=== PATIENT | female | born 1950 | race Caucasian/White ===

== ENCOUNTER → 2018-10-10 | Outpatient (CLI) | payer OTHER | LOC: RAD 12:21 | DX: M19.071 Primary osteoarthritis, right ankle and foot (principal); M25.771 Osteophyte, right ankle; Z88.8 Allergy status to other drugs, medicaments and biological substances; Z88.5 Allergy status to narcotic agent ==

== ENCOUNTER → 2019-03-27 | Outpatient (CLI) | payer OTHER | LOC: RAD 16:40 | DX: M19.071 Primary osteoarthritis, right ankle and foot (principal) ==

== ENCOUNTER → 2019-05-11 | Outpatient (CLI) | payer OTHER ==
[~2019-05-11] MED LIST: DULOXETINE HCL60 MG PO; FLEXERIL PO; GEMFIBROZIL 60600 MG PO; JARDIANCE10 MG PO; LISINOPRIL-HCT1 EAC2 PO; MELATONIN5 MG PO; MELOXICAM15 MG PO; METFORMIN HCL500 M3 PO; MONTELUKAST SODIUM PO; NORTRIPTYLINE H10 M2 PO; NOVOLOG100 UNIT/M SUBQ; OMEPRAZOLE40 MG PO; PERCOCET 5-3251 EACH PO; TRESIBA100 UNIT/1 SUBQ; ZYRTEC-D TABLE1 EAC1 PO
== END ==
LOC: RAD 15:11
DX: Z12.31 Encounter for screening mammogram for malignant neoplasm of breast (principal); M43.26 Fusion of spine, lumbar region; Z90.49 Acquired absence of other specified parts of digestive tract; Z88.8 Allergy status to other drugs, medicaments and biological substances

== ENCOUNTER → 2019-05-23 | Outpatient (CLI) | payer OTHER ==
[~2019-05-23] VITALS: Ht 162.6 cm; Wt 74.2 kg
[2019-05-23 13:01] VITALS: BP 109/70
--- NOTE | 2019-05-23 13:50 | NUR ---
Pain Clinic Assessment: 1. History of Osteoarthritis: Not Applicable History of Rheumatoid Arthritis: Not Applicable 2. Height: 5 ft. 4 in. 162.6 cm. Weight: 163.6 lb. oz. 74.208 kg. Patient's BMI: 28.1 3. Vital Signs: BP: 109/70 Pulse: 94 Resp: 14 Temp: 02 Sat: 98 ECG Mon: 4. Pain Intensity: 4 5. Fall Risk: Dizziness: Y Needs help standing or walking: N Fallen in the last 3 months: Y Fall risk comments: 6. Patient on Blood Thinner: None 7. History of Hypertension: Y 8. Opioid Therapy greater than 6 weeks: Y Opiate Contract Signed: 9. Risk Assessment Tool Provided: 10. Functional Assessment Tool: 11. Recreational Drug Use: Never Drug Type: Tobacco Use: Never Smoker Tobacco Type: Amount or Packs/day: How Many Years: Alcohol Use: Yes Frequency: Weekly Quant: 1-2
--- NOTE | 2019-05-30 12:56 | HPC ---
[facility] [address] [place] [address] PAIN MANAGEMENT CONSULTATION Name: MARC PHELAN Room #: REG BABATUNDE MBetty.#: [id number] Admission: 05/23/19 Attend Phys: Raj Brito DO Discharge: Date of : 50 Report #: [id number] THIS REPORT FOR: //name// CC: Raj Ocampo DATE OF SERVICE: 05/23/2019 REFERRING PHYSICIAN: ELZA Toledo. CHIEF COMPLAINT: Low back pain, right lower extremity pain with paresthesias, intermittent left lower extremity pain with paresthesias. HISTORY OF PRESENT ILLNESS: As you know, the patient is a 69-year-old female who reports acute onset of low back pain, bilateral lower extremity pain that began somewhere in March 2019. The patient denies any specific injury or trauma that may have led to symptom occurrence. She has trialed conservative treatment options utilizing rqgf-ook-gaoobwz medications and stretching exercises. Unfortunately, her symptoms did not improve. The patient has had fusion from L3 through S1, stabilizing the lumbar spine, but reducing any type of mobility. The patient states that she believes she may have exacerbated her symptoms while climbing up one of the hills at a football game. She states that the majority of symptoms are aching, numbness and sensation. Due to lack of improvement with conservative treatment and the fact that the patient has had significant surgical procedures done to the lumbar spine, she was referred to our clinic to discuss options for treatment. The patient indicates today pain is continuous, describes the pain as burning, shooting, aching, throbbing, sharp, tender when describing pain, current pain score 4/10, daily average of 5-7/10, worst pain has been 9/10. The patient states that pain is exacerbated with climbing stairs, standing for any length of time or walking on inclines. Pain is improved with reclining and stretching exercises. She has been referred to our service to discuss treatment options for chronic axial back pain, status post multiple fusion surgeries. PAST MEDICAL HISTORY: 1. Hypertension. 2. Anxiety. 3. Asthma. 4. Cataracts. 5. Diabetes mellitus type 2. 6. Gout. 7. Irritable bowel syndrome. 8. Osteoarthritis. 9. Chronic low back pain. [facility] [address] [place] [address] PAIN MANAGEMENT CONSULTATION Name: MARC PHELAN Room #: REG [facility].#: [id number] Admission: 05/23/19 Attend Phys: Raj Brito DO Discharge: Date of : 50 Report #: [id number] PAST SURGICAL HISTORY: 1. Appendectomy. 2. Cataract extraction. 3. Cholecystectomy. 4. Hysterectomy. 5. Fusions of L3, L4, L5 and S1. 6. Sinus surgery. 7. Right great toe surgery. 8. Tonsillectomy, adenoidectomy and bilateral myringotomy tubes. SOCIAL HISTORY: The patient denies tobacco use. Denies IV or illicit drug use. Admits to occasional alcohol beverage. She is accompanied by her present in room today. IMAGING: X-ray of the lumbar spine shows previous lumbar fusions and hardware at L5-S1, previous bony fusion at L3 through L5. No acute lumbar fracture noted. There is no MRI available. ALLERGIES: LYRICA, AUGMENTIN, ASPIRIN and CODEINE. CURRENT MEDICATIONS: Jardiance 10 mg once a day, omeprazole 40 mg once a day, insulin NovoLog 100 units subcutaneous before meals, nortriptyline 10 mg p.o. at bedtime, Mobic sodium 10 mg per day, metformin 500 mg twice a day, meloxicam 15 mg once a day, melatonin 5 mg 2 tabs p.o. at bedtime, lisinopril/hydrochlorothiazide 20/25 once a day, Tresiba 36 units daily, gemfibrozil 600 mg twice a day, duloxetine 60 mg once a day, pseudoephedrine/cetirizine 1 tab per day. PHYSICAL EXAMINATION: VITAL SIGNS: Blood pressure 109/70, pulse is 94, respiratory rate 14 and unlabored. The patient is 98% on room air. Height 5 feet 4 inches tall, weight 163.6 pounds, BMI calculated 28.1. GENERAL: Well-developed, well-nourished, well-hydrated 69-year-old female appearing her stated age. She is in no acute distress, awake, alert and oriented x 3. Current pain score is rated at 4/10. HEENT: Normocephalic, atraumatic. Pupils equal, round, reactive to light. Extraocular muscles are intact. Sclerae nonicteric without injection. NEUROLOGIC: Cranial nerves 2-12 grossly intact. Speech is fluent. The patient deemed a good historian. LUNGS: Clear, no wheeze, rhonchi or rales. CARDIOVASCULAR: Regular. No appreciable gallop. No murmur, no rub. ABDOMEN: Soft, nontender, nondistended, normoactive bowel sounds. EXTREMITIES: Show no clubbing, no cyanosis, no edema. MUSCULOSKELETAL: There is reduced range of motion of the lumbar spine due to previous fusions. Well-healed surgical scars over the lumbar spine. The patient has a significant reduction in extension, rotation, lateral flexion of [facility] [address] [place] [address] PAIN MANAGEMENT CONSULTATION Name: MARC PHELAN Room #: REG CLShahrzad Barreto#: [id number] Admission: 05/23/19 Attend Phys: Raj Brito DO Discharge: Date of : 50 Report #: [id number] the lumbar spine due to previous fusions. Seated straight leg raising negative. Supine straight leg raising negative. Siri's test is negative. Modified Gaenslen's positive as low back pain. Ankle clonus negative. Babinski is negative. Muscle bulk and tone in the lower extremities are equal and symmetrical. She is intact to light touch from L1 through S2 dermatomes. Gait appears steady, but somewhat stiff. ASSESSMENT: 1. Chronic back pain. 2. Chronic lumbar radiculopathy. 3. Failed lumbar spine surgery. 4. Chronic intractable pain. PLAN: 1. Based on today's physical exam and the history the patient provides the description the patient uses in regards to pain as well as the distribution of symptoms, likely source of the patient's pain is a lumbar radiculopathy. We have discussed with the patient the fact that she has undergone L3, L4, L5 and S1 fusions makes it impossible to proceed with interventional treatment such as epidural injections. We are severely limited due to the changes from surgical procedures. We discussed the limited treatment options we have available for the patient today, the following was discussed with the patient. 2. We discussed physical therapy, stretching exercises and any core strengthening. The patient can do to stabilize the low back and potentially improve overall pain. We discussed medication management utilizing muscle spasming medication for the spasming she experiences on a daily basis, utilizing low dose opioids to control pain and the possibility of adding a nonsteroidal anti-inflammatory if she can tolerate such. We also discussed neuropathic pain medications such as nortriptyline, amitriptyline, Cymbalta or possibly gabapentin, understanding the patient has had potential side effects to Lyrica. We also discussed spinal cord stimulator as a possible treatment option, which would be beneficial for the lower extremities, but we will provide no improvement in the axial back symptoms the patient is experiencing at present. After reviewing the risks and benefits of all proposed treatment options, the patient chose to make adjustments in medication management. 3. The patient will be trialed on a dose of cyclobenzaprine. I will give the patient 10 mg dose 1 tab p.o. t.i.d. I have given the patient #30 tablets to trial, these are to be only used when she is experiencing muscle spasming, which would be a significant component of the patient's pain presentation given the fusion of the L3 through S1 areas. This would not be surprised to have muscle spasming and I am hopeful this medication could be beneficial. The patient was given this prescription with no refills. 4. The patient and I had a long discussion about the use of medications indicating that with the opioid epidemic that these medications will not be available for a long time and ultimately she will have to wean off the therapy [address] [address] PAIN MANAGEMENT CONSULTATION Name: MARC PHELAN Room #: REG BABATUNDE Barreto#: [id number] Admission: 05/23/19 Attend Phys: Raj Brito DO Discharge: Date of : 50 Report #: [id number] once they are unavailable which could be in the very near future. We did agree to initiate the medication today with the understanding that ultimately these medications will likely be discontinued for chronic pain. 5. The patient was provided prescription of oxycodone 5 mg dose 1 tab p.o. b.i.d. I have given the patient #60 tablets. I have advised the patient not to take the medication on a prophylactic basis. She is to take the medication as directed. She is to watch for side effects of sleepiness, disorientation, confusion, mental slowing and constipation. 6. The patient will be returned to our clinic in approximately 1 month. If she is stable on the dosing of medication, we will return her care to her PCP to continue the therapy. She does not need to continue with the pain management clinic for low dose medications to be provided. We will review her case in followup visit. She is doing well. We will return her care to the referring physician. 7. We did discuss to some degree a spinal cord stimulator as a possible treatment option. As indicated above, the spinal cord stimulator can provide improvement in the lower extremity symptoms, but we will provide little or no benefit of the axial back and thus I do not feel it is a good alternative treatment, though it is available, she could consider this if more conservative treatment options are less effective. 8. We wish to thank the referring nurse practitioner, Trang Ocampo for the opportunity to see the patient in consultation. We will keep you apprised of her response to treatment and any other adjustments we make in medication management before returning her care to your capable services for continuation of treatment. Again, we wish to thank you for the opportunity to see the patient in consultation. <ELECTRONICALLY SIGNED> By: Raj Brito DO 05/30/19 [id number] Raj Brito DO /nt
== END ==
LOC: PAIN 07:00
DX: M54.16 Radiculopathy, lumbar region (principal); G89.4 Chronic pain syndrome; I10 Essential (primary) hypertension; M19.90 Unspecified osteoarthritis, unspecified site; E11.9 Type 2 diabetes mellitus without complications; F41.9 Anxiety disorder, unspecified; Z79.899 Other long term (current) drug therapy; Z88.8 Allergy status to other drugs, medicaments and biological substances

== ENCOUNTER → 2019-06-28 | Outpatient (CLI) | payer OTHER ==
[~2019-06-28] VITALS: Ht 162.6 cm; Wt 74.2 kg
[2019-06-28 14:36] VITALS: BP 103/67
--- NOTE | 2019-06-28 14:50 | NUR ---
Pain Clinic Assessment: 1. History of Osteoarthritis: HANDS BACK History of Rheumatoid Arthritis: Not Applicable 2. Height: 5 ft. 4 in. 162.6 cm. Weight: 163.6 lb. oz. 74.208 kg. Patient's BMI: 28.1 3. Vital Signs: BP: 103/67 Pulse: 96 Resp: 14 Temp: 02 Sat: 96 ECG Mon: 4. Pain Intensity: 2 5. Fall Risk: Dizziness: Y Needs help standing or walking: N Fallen in the last 3 months: N Fall risk comments: 6. Patient on Blood Thinner: None 7. History of Hypertension: Y 8. Opioid Therapy greater than 6 weeks: Y Opiate Contract Signed: 9. Risk Assessment Tool Provided: 10. Functional Assessment Tool: 11. Recreational Drug Use: Never Drug Type: Tobacco Use: Never Smoker Tobacco Type: Amount or Packs/day: How Many Years: Alcohol Use: Yes Frequency: Weekly Quant: 1-2
--- NOTE | 2019-07-05 12:57 | HPC ---
[facility] [address] [place] [address] PAIN MANAGEMENT CONSULTATION Name: MARC PHELAN Room #: REG BABATUNDE Christ.#: [id number] Admission: 06/28/19 Attend Phys: Raj Brito DO Discharge: Date of : 50 Report #: [id number] THIS REPORT FOR: //name// CC: Raj BERTRAND DATE OF SERVICE: 06/28/2019 REFERRING PHYSICIAN: ELZA Toledo CHIEF COMPLAINT: Low back pain, right lower extremity pain with paresthesias, intermittent left lower extremity pain. HISTORY OF PRESENT ILLNESS: As you know, the patient is a 69-year-old female reporting acute onset of low back pain, bilateral lower extremity pain that began somewhere in 03/2019. She denies any specific injury or trauma that may have led to symptom occurrence. She was seen in consultation per the request of Trang Ocampo on 05/23/2019, diagnosed with chronic lumbar radiculopathy, failed lumbar spine surgery with chronic intractable pain. At that visit, we discussed treatment options provided the patient with adjustment in her medications. We provided her with a dose of oxycodone for pain control and we discussed a spinal cord stimulator option with the patient. She returns today in followup visit requesting refill of medications. She feels medications are working beneficially for pain control. She is denying side effects of sleepiness, disorientation, confusion, mental slowing or constipation with their use. The patient indicates pain level today of about 2/10, which is a significant improvement from her initial evaluation. She returns today for refill of medications, requesting no adjustments. ALLERGIES: CODEINE, ASPIRIN, CLAVULANIC ACID, AMOXICILLIN and PREGABALIN. CURRENT MEDICATIONS: Percocet 5/325 one tab t.i.d. p.r.n. pain, Jardiance 10 mg once a day, omeprazole 40 mg per day, NovoLog 100 units subcutaneous before meals, nortriptyline 20 mg p.o. at bedtime, montelukast sodium 10 mg per day, metformin 500 mg b.i.d., meloxicam 15 mg per day, melatonin 10 mg per day, lisinopril/hydrochlorothiazide 20/25 once a day, Tresiba 36 units in the morning, gemfibrozil 600 mg b.i.d., duloxetine 60 mg once a day, and cetirizine 10 mg per day. IMAGING: No new imaging available. SOCIAL HISTORY: The patient denies tobacco, denies IV or illicit drug use. Admits occasional alcohol beverage. She is accompanied by her present [place] [address] PAIN MANAGEMENT CONSULTATION Name: MARC PHELAN Room #: REG BABATUNDE Barreto#: [id number] Admission: 06/28/19 Attend Phys: Raj Brito DO Discharge: Date of : 50 Report #: [id number] PHYSICAL EXAMINATION: VITAL SIGNS: Blood pressure 103/67, pulse 96, respiratory rate 14 and unlabored. The patient is 96% on room air. Height 5 feet 4 inches tall, weight 163.6 pounds, BMI calculated 28.1. GENERAL: Well-developed, well-nourished, well-hydrated 69-year-old female appearing stated age. Pain is rated today at 2/10. HEENT: Normocephalic, atraumatic. Pupils equal, round, reactive to light. EXTREMITIES: Show no clubbing, no cyanosis, and no edema. MUSCULOSKELETAL: Lower extremity strength appears symmetrical 5/5, intact to light touch from L1 through S2 dermatomes. Seated straight leg raising negative. Supine straight leg raising is negative. Siri's test negative. Modified Gaenslen's positive for axial low back pain. Well-healed surgical scars. ASSESSMENT: 1. Chronic lumbar radiculopathy. 2. Failed lumbar spine surgery. 3. Chronic low back pain. 4. Chronic intractable pain. PLAN: 1. The patient returns today in followup visit indicating that medication management is working well for pain control. We have stabilized the patient on medication and have advised the patient that further adjustments in our opinion at this time, will not be necessary. We did advise the patient that continuation of oxycodone therapy will not be something that can be provided long-term as there is no noted literature that supports long-term opioid management in patients with chronic failed lumbar spine surgery. We have agreed to provide pain medications before the period of time of no greater than 6 months. At that time, the patient will need to either just off these medications or to trial other treatment options that are more appropriate for long-term therapy. The patient is amenable. 2. We reviewed the fact that opiate medications are being used to provide analgesia adequate to support activities of daily living, not attempting to achieve a specific pain score on the 0-10 Visual Analog Scale. The current opiate medications are providing sufficient analgesia to allow the patient to participate in activities of daily living. The patient is not exhibiting any aberrant behavior suggestive of drug diversion. The patient is not having any adverse reactions to medications. The patient is not suffering from daytime somnolence or mental acuity changes. The patient is managing opiate-induced constipation with appropriate ohtb-qcc-lmunicw agents and dietary considerations. The patient was counseled on concern for caution with operating a motor vehicle while using opiate medications. A physical exam was performed and the patient's functional status was evaluated. All patients with back pain were advised against the bed rest greater than 4 [facility] [address] [place] [address] PAIN MANAGEMENT CONSULTATION Name: MARC PHELAN Room #: REG CLShahrzad M.Dhiraj.#: [id number] Admission: 06/28/19 Attend Phys: Raj Brito DO Discharge: Date of : 50 Report #: [id number] days and were advised to return to normal activities. Pain score assessment was noted and the treatment plan was reviewed with the patient. All current medications, both prescribed and OTC were reviewed and reconciled on the electronic medical record. Tobacco screening was accomplished and smoking cessation was advised when indicated. BMI was noted and diet/exercise modification was recommended for all patients following outside normal parameters. I reviewed with the patient today their responsibilities to safeguard prescription medications, reviewed their responsibility to utilize medications only as prescribed by the physician. They are to seek and receive pain medications only from 1 physician group ( [facility]). They are to use 1 pharmacy and keep the clinic informed if they change pharmacies. Their responsibilities include making followup visits in a timely fashion and to avoid abrupt discontinuation of medication usage. Their responsibilities further include bringing their medications (bottles from the pharmacy with residual pills) to the visit for possible confirmation of pill counts and the patient understands it is their responsibility to submit to random drug screens to ensure both that the medications prescribed are present, and that no other controlled substances are present. All prescriptions provided today were generated electronically. 3. The patient was provided prescription of oxycodone 5/325 mg dose 1 tab p.o. t.i.d. I have given the patient #90 tablets, releasing today, 4 weeks from today and 8 weeks from today, 3 months' worth of medication. The patient was advised to take the medication as directed, not to take the medication prophylactically. 4. We will see the patient back in followup visit in 3 months to discuss more long-term treatment options. <ELECTRONICALLY SIGNED> By: Raj Brito DO 07/05/19 [id number] Raj Brito DO /nt
== END ==
LOC: PAIN 06:55
DX: M54.16 Radiculopathy, lumbar region (principal); M79.604 Pain in right leg; M79.605 Pain in left leg; Z88.5 Allergy status to narcotic agent; Z88.1 Allergy status to other antibiotic agents; Z88.8 Allergy status to other drugs, medicaments and biological substances

== ENCOUNTER → 2019-10-18 | Outpatient (CLI) | payer OTHER ==
[~2019-10-18] VITALS: Ht 165.1 cm; Wt 75.3 kg
[2019-10-18 12:51] VITALS: BP 125/76
--- NOTE | 2019-10-18 13:01 | NUR ---
Pain Clinic Assessment: 1. History of Osteoarthritis: HANDS BACK History of Rheumatoid Arthritis: Not Applicable 2. Height: 5 ft. 5 in. 165.1 cm. Weight: 166.0 lb. oz. 75.297 kg. Patient's BMI: 27.6 3. Vital Signs: BP: 125/76 Pulse: 85 Resp: 16 Temp: 02 Sat: 100 ECG Mon: 4. Pain Intensity: 6 5. Fall Risk: Dizziness: N Needs help standing or walking: N Fallen in the last 3 months: Y Fall risk comments: 6. Patient on Blood Thinner: None 7. History of Hypertension: Y 8. Opioid Therapy greater than 6 weeks: Y Opiate Contract Signed: 9. Risk Assessment Tool Provided: LOW-0 10. Functional Assessment Tool: 11. Recreational Drug Use: Never Drug Type: Tobacco Use: Never Smoker Tobacco Type: Amount or Packs/day: How Many Years: Alcohol Use: Yes Frequency: Monthly Quant: 1
--- NOTE | 2019-10-19 08:19 | HPC ---
[facility] [place] [address] PAIN MANAGEMENT CONSULTATION Name: MARC PHELAN Room #: REG BABATUNDE Christ.#: [id number] Admission: 10/18/19 Attend Phys: Shama Vegas Discharge: Date of : 50 Report #: [id number] THIS REPORT FOR: cc: Trang Ocampo DNP, Mary E. DNP Hocker, Amanda CNS ~ CC: Raj Brito DO DATE OF SERVICE: 10/18/2019 CHIEF COMPLAINT: Low back pain, right lower extremity pain and paresthesias. HISTORY OF PRESENT ILLNESS: As you know, this is a 69-year-old female who continues to have ongoing low back pain and bilateral lower extremity pain. Today, the majority of pain is in the left lower extremity. She reports that she fell at [employer] about 6 weeks ago and injured her knee and back. She did not seek any medical attention at that time due to the COVID virus outbreak. At that time, she was very scared to go to a hospital to have any x-rays or see a doctor. She has been trying to deal with that at home, but continues to have throbbing pain, which is occasionally sharp in her lower back again radiating down her left leg more specifically, but occasionally has some right-sided pain. She states that her spasms have increased in her back and she is not able to sleep at night. Today, she is reporting a pain score is 6/10, pain is worse with walking stairs and sleeping at night. She has been requiring more of her breakthrough pain medicine of Percocet to get through each day. Today, she is requesting refills of her medication, a possible muscle relaxant and a possible x-ray to verify that she has not injured herself from this fall. ALLERGIES: CODEINE, ASPIRIN, AMOXICILLIN, AND LYRICA. CURRENT LIST OF MEDICATIONS: Percocet 5/325 p.r.n., Jardiance, omeprazole, NovoLog, nortriptyline, Singulair, metformin, meloxicam, melatonin, lisinopril/hydrochlorothiazide, Tresiba, gemfibrozil, Cymbalta, Zyrtec and oxycodone. PQRS: 1. She has osteoarthritic changes in her hands and back. Denies any rheumatoid arthritis. 2. Height is 5 feet 5 inches, weight is 166, BMI is 27. 3. Vital signs 125/76, pulse is 85, respirations 16, oxygen sat is 100. 4. Pain score is 6/10. 5. Denies dizziness, does not need help walking or standing, has fallen in the last 3 months. 6. The patient is not on any blood thinners, but she does take medicine for hypertension. Her opioid therapy is greater than 6 weeks; therefore, an opioid signed contract is on the chart. Risk [place] [address] PAIN MANAGEMENT CONSULTATION Name: MARC PHELAN Room #: REG BABATUNDE Barreto#: [id number] Admission: 10/18/19 Attend Phys: Shama Vegas Discharge: Date of : 50 Report #: [id number] assessment is 48/70. 7. Recreational drug use, she denies. She is not a smoker and occasionally drinks alcohol. IMAGING: I ordered an x-ray of her pelvis, which showed no fractures and lumbar spinal fusion on the L4 laminectomy. Two view lumbar spine showed an L3-S1 spinal fusion with L4 laminectomy, degenerative disk disease of the lumbar spine with no fractures present. PHYSICAL EXAMINATION: GENERAL: This is alert and orientated, well-developed, well-nourished 69-year-old female who appears her stated age, placing her current pain score is 6/10. HEENT: Normocephalic, atraumatic. Extraocular eye muscles are intact. EXTREMITIES: No clubbing, no cyanosis, no edema. MUSCULOSKELETAL: She has tenderness in her left knee. Pain radiates from her lower back down the lateral aspect of her thigh following the L4-L5 dermatomal distribution. Straight leg raising is negative. Modified Gaenslen is positive for axial low back pain. She has well-healed surgical scars. Her lower extremity strength judged to be 5/5 in all major muscle groups. She does have a slightly antalgic gait. IMPRESSION: 1. Chronic lumbar radiculopathy. 2. Failed lumbar spine syndrome. 3. Chronic low back pain. 4. Chronic intractable pain. 5. Muscle spasms. PLAN: 1. We discussed treatment options with the patient today. We will continue her oxycodone at 5/325, #90, for today for an 8-week supplies given and sent electronically. We will hopefully be able to wean this back down again after this acute injury. The patient has been taking these very sparingly and had not filled any prescriptions and have her 3 months of medicine have lasted her greater than 4 months. 2. The patient is complaining of increased muscle spasms in her lumbar spine since her recent fall. She had taken Flexeril in the past, we will send a prescription electronically for #30 with no refills to see if this will help her sleep slightly better with less spasms at night. 3. We did perform x-rays today and reports as stated above. 4. I have taken the liberty of scheduling appointment with Dr. Raj Brito for a possible lumbar epidural steroid injection for next week if her symptoms do not resolve over the weekend or at least diminished with her muscle relaxant [facility] [address] [place] [address] PAIN MANAGEMENT CONSULTATION Name: MARC PHELAN Room #: REG BABATUNDE Barreto#: [id number] Admission: 10/18/19 Attend Phys: Shama Vegas Discharge: Date of : 50 Report #: [id number] and opioid medications. 5. The patient is seen today in collaboration with Dr. Raj Brito. <ELECTRONICALLY SIGNED> By: Shama Vegas 10/19/19 0819 1519 05 Shama Vegas /nt
== END ==
LOC: PAIN 07:55 → RAD 07:55 → PAIN 09:49
DX: M51.16 Intervertebral disc disorders with radiculopathy, lumbar region (principal); M43.16 Spondylolisthesis, lumbar region; R10.2 Pelvic and perineal pain; M79.641 Pain in right hand; M62.838 Other muscle spasm; G89.29 Other chronic pain; R20.2 Paresthesia of skin; Z88.1 Allergy status to other antibiotic agents; Z88.2 Allergy status to sulfonamides; Z88.8 Allergy status to other drugs, medicaments and biological substances; Z79.899 Other long term (current) drug therapy; Z98.1 Arthrodesis status

== ENCOUNTER → 2019-10-25 | Outpatient (CLI) | payer OTHER ==
[~2019-10-25] VITALS: Ht 165.1 cm; Wt 74.4 kg
[~2019-10-25] MED LIST changes: +MEDROLDOSEPACK PO
--- NOTE | ~2019-10-25 | HPC ---
[facility] [place] [address] PAIN MANAGEMENT CONSULTATION Name: MARC PHELAN Room #: REG BABATUNDE Polo.#: [id number] Admission: 10/25/19 Attend Phys: Raj Brito DO Discharge: Date of : 50 Report #: [id number] THIS REPORT FOR: cc: Trang Ocampo DNP, Mary E. DNP Johnson, James E. DO ~ CC: Raj BERTRAND DATE OF SERVICE: 10/25/2019 REFERRING PHYSICIAN: ELZA Toledo CHIEF COMPLAINT: Low back pain, right lower extremity pain with paresthesias. HISTORY OF PRESENT ILLNESS: As you know, the patient is a very pleasant 69-year-old female who returns today in followup visit having sustained a fall at a local hardware store. She states she tripped over a platform falling forward, exacerbating her low back symptoms. She is now experiencing pain radiating down the right leg and intermittently into the left. She did not seek evaluation after this fall and has continued to suffer from ongoing pain. She saw the nurse practitioner here at our clinic, Shama Vegas who established today's appointment for possible epidural injection. The patient indicates pain has begun to improve slightly and she wishes to discuss options for treatment. She has undergone x-ray imaging of the pelvis and the lumbar spine. There are no concerning findings. She returns to discuss these x-ray imaging, but also interventional treatments if necessary. ALLERGIES: CODEINE, ASPIRIN, AMOXICILLIN and LYRICA. CURRENT MEDICATIONS: Percocet, Jardiance, omeprazole, NovoLog, nortriptyline, Singulair, metformin, meloxicam, melatonin, lisinopril, hydrochlorothiazide, Tresiba, gemfibrozil, Cymbalta, Zyrtec and oxycodone. SOCIAL HISTORY: The patient denies tobacco, alcohol, IV or illicit drug use. She is unaccompanied at today's visit. IMAGING: X-ray of the lumbar spine shows no fractures or concerning changes. There is effusion noted from L3 through S1. X-ray of the pelvis shows normal alignment of the pelvis and normal findings. No fracture. PQRS: The patient has known arthritic changes of the bilateral hands and lumbar spine. Denies rheumatoid arthritis. She is placing pain intensity today at [address] [address] PAIN MANAGEMENT CONSULTATION Name: MARC PHELAN Room #: REG [facility] Christ.#: [id number] Admission: 10/25/19 Attend Phys: Raj Brito DO Discharge: Date of : 50 Report #: [id number] 09/28. She is not typically a fall risk, but did have a fall about 6 weeks ago at her local hardware store while tripping over an object. She does not have typical fall concerns. She is not on blood thinners, but is treated for hypertension. She is on chronic opioids with low opioid addiction potential. Pain impact score is 48/70, severe interference of daily activities secondary to pain. PHYSICAL EXAMINATION: VITAL SIGNS: Blood pressure 130/73, pulse 100, respiratory rate 16 and unlabored. The patient is 98% on room air. Height 5 feet 5 inches tall, weight 164 pounds, BMI calculated 27.3. GENERAL: Well-developed, well-nourished, well-hydrated 69-year-old female appearing stated age, pain is rated today 4/10. HEENT: Normocephalic, atraumatic. Pupils equal, round and reactive. EXTREMITIES: Show no clubbing, no cyanosis, no edema. MUSCULOSKELETAL: The patient has tenderness to palpation over the paraspinal musculature of lower lumbar spine. No spinous process tenderness. Well-healed surgical scar noted. Seated straight leg raising negative. Supine straight leg raising is positive. Siri's test is negative. Modified Gaenslen's positive for axial low back pain, severe restriction of motion of the lumbar spine secondary to surgery. Muscle strength is equal and symmetrical in lower extremities, 5/5. Muscle bulk and tone equal and symmetrical. Light touch is intact from L1 through S2 dermatomes. ASSESSMENT: 1. Chronic lumbar radiculopathy. 2. Failed lumbar spine surgery. 3. Lumbar sprain secondary to fall. 4. Chronic low back pain. 5. Myofascial symptoms. PLAN: 1. The patient returns today in followup visit, showing continued back pain and lower extremity symptoms, which appears to be exacerbated lumbar radicular symptoms secondary to this fall. The patient did not seek evaluation from this fall and likely x-ray imaging shows no fractures in the lumbar spine nor any fractures in the pelvis. It does appear she may have exacerbated her chronic lumbar radiculopathy, but also a significant amount of myofascial strain is noted. We recommend conservative treatment option at this time. I do not feel that further imaging is necessary, though this may ultimately be needed if she continues to experience pain that is unresolved with more conservative treatment options. The patient is agreeable. 2. We did discuss the patient's treatment options we have available, these include physical therapy, stretching exercise, core strengthening. We also discussed medication management adding a steroid oral initially. If this is ineffective, move forward with a possible lumbar epidural injection. If [address] [address] PAIN MANAGEMENT CONSULTATION Name: MARC PHELAN Room #: REG BABATUNDE Barreto#: [id number] Admission: 10/25/19 Attend Phys: Raj Brito DO Discharge: Date of : 50 Report #: [id number] epidural injections and medication management are not effective, options would remain with spinal cord stimulator or surgical options. After reviewing the risks and benefits of all proposed treatment options, the patient chose to begin with conservative medication management. 3. The patient will be started on Medrol Dosepak. She will take the pack as directed. We are hopeful the patient will see good and prolonged benefit with its use. I have provided the patient with a prescription of Medrol Dosepak today to begin tomorrow. 4. The patient will contact our clinic next week if she is not seeing significant pain improvement with this Medrol Dosepak. There is a possibility that she has exacerbated her chronic lumbar radiculopathy with this fall. There is also a strong possibility that she may have had some changes at the L2-L3 level that are now realized after this fall as she has been fused from L3 through S1, which places her at a much greater risk of development of the spinal stenosis at the level just above the fusion. If further imaging is necessary, would recommend MRI. We will await the results and efficacy of the Medrol Dosepak before moving forward with imaging. 5. We will see the patient back in followup visit on an as needed basis. She will contact our clinic next week in regards to efficacy, further adjustments may be necessary at that time. By: [id number] Raj Brito DO /dylan
[2019-10-25 13:32] VITALS: BP 130/73
--- NOTE | 2019-10-25 13:35 | NUR ---
Pain Clinic Assessment: 1. History of Osteoarthritis: HANDS BACK History of Rheumatoid Arthritis: Not Applicable 2. Height: 5 ft. 5 in. 165.1 cm. Weight: 164.0 lb. oz. 74.390 kg. Patient's BMI: 27.3 3. Vital Signs: BP: 130/73 Pulse: 100 Resp: 16 Temp: 02 Sat: 98 ECG Mon: 4. Pain Intensity: 4 5. Fall Risk: Dizziness: N Needs help standing or walking: N Fallen in the last 3 months: Y Fall risk comments: 6. Patient on Blood Thinner: None 7. History of Hypertension: Y 8. Opioid Therapy greater than 6 weeks: Y Opiate Contract Signed: 9. Risk Assessment Tool Provided: LOW-0 10. Functional Assessment Tool: 11. Recreational Drug Use: Never Drug Type: Tobacco Use: Never Smoker Tobacco Type: Amount or Packs/day: How Many Years: Alcohol Use: Yes Frequency: Quant:
== END ==
LOC: PAIN 06:48
DX: M54.16 Radiculopathy, lumbar region (principal); M79.604 Pain in right leg; R20.2 Paresthesia of skin; M96.1 Postlaminectomy syndrome, not elsewhere classified; M79.10 Myalgia, unspecified site; Z88.1 Allergy status to other antibiotic agents; Z88.5 Allergy status to narcotic agent; Z88.8 Allergy status to other drugs, medicaments and biological substances; Z79.899 Other long term (current) drug therapy

== ENCOUNTER → 2019-11-20 | Outpatient (CLI) | payer OTHER | LOC: LAB 11-17 09:12 | PROVIDERS: ATTEND Nurse Practitioner | DX: R05 Cough (principal); R50.9 Fever, unspecified; J02.9 Acute pharyngitis, unspecified; Z20.828 Contact with and (suspected) exposure to other viral communicable diseases ==

== ENCOUNTER → 2020-01-17 | Outpatient (CLI) | payer OTHER ==
[~2020-01-17] VITALS: Ht 165.1 cm; Wt 74.0 kg
[~2020-01-17] MED LIST changes: +NEURONTIN 300M300 M2 PO; +PLAQUENIL200 MG PO
[2020-01-17 10:56] VITALS: BP 157/84
--- NOTE | 2020-01-17 11:12 | NUR ---
Pain Clinic Assessment: 1. History of Osteoarthritis: HANDS BACK History of Rheumatoid Arthritis: YES 2. Height: 5 ft. 5 in. 165.1 cm. Weight: 163.2 lb. oz. 74.027 kg. Patient's BMI: 27.2 3. Vital Signs: BP: 157/84 Pulse: 96 Resp: 18 Temp: 02 Sat: 100 ECG Mon: 4. Pain Intensity: 4-5 7 noc 5. Fall Risk: Dizziness: N Needs help standing or walking: N Fallen in the last 3 months: N Fall risk comments: 6. Patient on Blood Thinner: None 7. History of Hypertension: Y 8. Opioid Therapy greater than 6 weeks: Y Opiate Contract Signed: 01/17/20 9. Risk Assessment Tool Provided: LOW-0 10. Functional Assessment Tool: 11. Recreational Drug Use: Never Drug Type: Tobacco Use: Never Smoker Tobacco Type: Amount or Packs/day: How Many Years: Alcohol Use: No Frequency: Quant:
--- NOTE | 2020-01-18 11:21 | HPC ---
[facility] [address] [address] PAIN MANAGEMENT CONSULTATION Name: MARC PHELAN Room #: REG BABATUNDE Christ.#: [id number] Admission: 01/17/20 Attend Phys: Shama Vegas Discharge: Date of : 50 Report #: [id number] THIS REPORT FOR: cc: Trang Ocampo DNP, Mary E. DNP Hocker, Amanda CNS ~ CC: ZAIN CHANDLER DO DATE OF SERVICE: 01/17/2020 CHIEF COMPLAINT: Low back pain, right lower extremity pain and paresthesias. HISTORY OF PRESENT ILLNESS: As you know, this is a 69-year-old female who returns to the pain clinic today for a refill of her opioid medications. She does continue to complain of ongoing back pain that radiates into her legs, right leg greater than the left and increase in neuropathy in her feet. She is rating her pain score at 4-5 today, but at nighttime it is quite elevated at 7/10. She feels that any exercise, walking and standing does aggravate her pain. She believes that using heat and her medications have been beneficial. Today, she is requesting refill of her medications or possibly adding additional medications or increasing her pain allotment for the month per her request. The patient did see Dr. Zain Chandler in October. At that time, he gave her a Medrol Dosepak and encouraged her to continue with her physical therapy. They had discussed a possible epidural injection, but we are trying conservative treatment first. Patient did feel that the Medrol Dosepak was beneficial while she was taking it, but after she completed the medication, her pain resumed. She does currently go to physical therapy 2 times a week and continues her exercises at home. ALLERGIES: CODEINE, ASPIRIN, AMOXICILLIN and LYRICA. CURRENT MEDICATIONS: Percocet, Jardiance, omeprazole, NovoLog, nortriptyline, Singulair, metformin, meloxicam, melatonin, lisinopril/hydrochlorothiazide, Tresiba, gemfibrozil, Cymbalta, Zyrtec. PQRS: 1. She has osteoarthritis in her hands and her back and is currently started treatment for rheumatoid arthritis. 2. Height is 5 feet 5 inches, weight is 163, BMI is 27. 3. Vital signs; blood pressure 157/84, pulse is 96, respirations 18, oxygen sat is 100. 4. Pain score is 4-5 in the day times and 7/10 at night. 5. Denies dizziness, does not need help walking or standing, has not fallen in the last 3 months. 6. The patient is not on any blood thinners, does take medicine for [address] [address] PAIN MANAGEMENT CONSULTATION Name: MARC PHELAN Room #: REG BABATUNDE Barreto#: [id number] Admission: 01/17/20 Attend Phys: Shama Vegas Discharge: Date of : 50 Report #: [id number] hypertension. 7. Opioid therapy is greater than 6 weeks; therefore, an opioid signed contract is on the chart. Risk assessment tool is low. Functional assessment is 48/70. 8. Recreational drug use, she denies. She is not a smoker and does not drink alcohol. According to the prescription monitoring system, the patient is due to fill her medications today. Her morphine milliequivalent according to the CDC guidelines is 22. PHYSICAL EXAMINATION: GENERAL: This is alert and orientated, well-developed, well-nourished 69-year-old female who appears her stated age, placing her current pain score at 4-7 today. HEENT: Normocephalic, atraumatic. Pupils equal, round and reactive to light. She is wearing a mask. EXTREMITIES: No clubbing, no cyanosis, no edema. She has rheumatoid nodules on the proximal part of her fingers. MUSCULOSKELETAL: She has well-healed surgical scars in her lumbar spine. She has tenderness that is palpable over the paraspinal musculature of the lumbar spine. Modified ganglion is positive for axial low back pain with restriction in her movement due to previous surgeries. Pain does radiate into her lower extremities and her feet with burning and numbness in her feet present today. Muscle strength is equal and symmetrical in her lower extremities at 5/5 that is intact to light touch from L1-S2. ASSESSMENT: 1. Chronic lumbar radiculopathy. 2. Failed lumbar spine surgery. 3. Chronic low back pain. 4. Myofascial symptoms. 5. Rheumatoid arthritis, recently started on hydroxychloroquine. We reviewed the fact that opiate medications are being used to provide analgesia adequate to support activities of daily living, not attempting to achieve a specific pain score on the 0-10 Visual Analog Scale. The current opiate medications are providing sufficient analgesia to allow the patient to participate in activities of daily living. The patient is not exhibiting any aberrant behavior suggestive of drug diversion. The patient is not having any adverse reactions to medications. The patient is not suffering from daytime somnolence or mental acuity changes. The patient is managing opiate-induced constipation with appropriate vrum-saq-[id number] agents and dietary considerations. The patient was counseled on concern for caution with operating a motor vehicle while using opiate medications. A physical exam was performed and the patient's functional status was evaluated. [address] [address] PAIN MANAGEMENT CONSULTATION Name: MARC PHELAN Room #: REG [facility].#: [id number] Admission: 01/17/20 Attend Phys: Shama Vegas Discharge: Date of : 50 Report #: [id number] All patients with back pain were advised against the bed rest greater than 4 days and were advised to return to normal activities. Pain score assessment was noted and the treatment plan was reviewed with the patient. All current medications, both prescribed and OTC were reviewed and reconciled on the electronic medical record. Tobacco screening was accomplished and smoking cessation was advised when indicated. BMI was noted and diet/exercise modification was recommended for all patients following outside normal parameters. I reviewed with the patient today their responsibilities to safeguard prescription medications, reviewed their responsibility to utilize medications only as prescribed by the physician. They are to seek and receive pain medications only from 1 physician group ( [facility]). They are to use 1 pharmacy and keep the clinic informed if they change pharmacies. Their responsibilities include making followup visits in a timely fashion and to avoid abrupt discontinuation of medication usage. Their responsibilities further include bringing their medications (bottles from the pharmacy with residual pills) to the visit for possible confirmation of pill counts and the patient understands it is their responsibility to submit to random drug screens to ensure both that the medications prescribed are present, and that no other controlled substances are present. All prescriptions provided today were generated electronically. PLAN: 1. We discussed treatment options with the patient today. The patient continues to complain of ongoing low back pain with radicular symptoms. She reports she has been doing physical therapy and has used Medrol Dosepak for conservative treatment. She is still considering a lumbar epidural steroid injection that will be performed by Dr. Zain Chandler since she has been having ongoing pain for several months now. She is requesting changes in her medication. I offered her gabapentin 300 mg at bedtime since the patient is continuing to have neuropathy in her lower extremities. This may be associated from her radiculopathy or from her diabetes. She will trial this medicine for the next few weeks. If it is not beneficial, she will call to schedule an appointment with Dr. Chandler. 2. I encouraged the patient to continue her physical therapy hoping to reduce some of her pain in this conservative therapy. 3. We will continue her oxycodone 5/325 three times a day. I reminded the patient that opioids are generally not used to treat neuropathic symptoms. Scripts will be sent electronically by Dr. Zain Chandler for today and 4-week and 8-week release. [address] [address] PAIN MANAGEMENT CONSULTATION Name: MARC PHELAN Room #: REG [facility] Estevan#: [id number] Admission: 01/17/20 Attend Phys: Shama Vegas Discharge: Date of : 50 Report #: [id number] 4. The patient is seen today in collaboration with Dr. Zain Chandler. The patient will call for followup in 2 weeks. <ELECTRONICALLY SIGNED> By: Shama Vegas 01/18/20 1121 1251 1321 Shama ca
== END ==
LOC: PAIN 06:52
PROVIDERS: ATTEND Clinical Nurse Specialist Adult Health
DX: M54.16 Radiculopathy, lumbar region (principal); M79.604 Pain in right leg; M79.605 Pain in left leg; R20.2 Paresthesia of skin; M06.9 Rheumatoid arthritis, unspecified; M79.10 Myalgia, unspecified site; M96.1 Postlaminectomy syndrome, not elsewhere classified; Z88.8 Allergy status to other drugs, medicaments and biological substances; Z79.899 Other long term (current) drug therapy

== ENCOUNTER 2020-04-18 13:57 | Emergency (ER) | payer OTHER ==
[~2020-04-18] VITALS: Ht 165.1 cm; Wt 75.3 kg
[2020-04-18 14:15] LABS: URINE BILIRUBIN NEGATIVE (Negative); URINE BLOOD 3+ (Negative); URINE CLARITY CLEAR; URINE COLOR YELLOW; URINE GLUCOSE-RANDOM* NEGATIVE (Negative); URINE KETONES NEGATIVE (Negative); URINE PROTEIN (DIPSTICK) 1+ (Negative); URINE SPECIFIC GRAVITY >= 1.030 (1.005-1.035); URINE UROBILINOGEN 0.2 E.U./dl (0.2-1.0)
[2020-04-18 14:17] LABS: URINE LEUKOCYTES-REFLEX 2+ (Negative); URINE NITRITE-REFLEX POSITIVE (Negative)
[2020-04-18] MEDS ORDERED: FAMOTIDINE10 MG PO (14:19)
[2020-04-18 14:34] LABS: CASTS None Seen /LPF (None Seen); CRYSTALS None Seen /LPF (None Seen); SQUAMOUS 4-10 Moderate /LPF (0-3); URINE WBC-REFLEX >25 Many /HPF (0-5)
[2020-04-18 14:35] LABS: BACTERIA-REFLEX >30 Many /HPF (None Seen)
[2020-04-18 14:48] LABS: HEMATOCRIT 39.5 % (37.0-47.0); HEMOGLOBIN 12.7 gm/dL (12.0-15.0); MCH 27.5 pg (26.0-34.0); MCHC 32.1 g/dL (28.0-37.0); MCV 85.5 fL (80.0-100.0); RBC 4.62 mil/uL (4.20-5.00); RDW 15.1 % (10.5-14.5); WBC 7.7 thou/uL (4.0-11.0)
[2020-04-18 14:53] LABS: ANION GAP 17 mmol/L (7-16); BUN 19 mg/dL (7-18); CALCIUM 9.6 mg/dL (8.5-10.1); CHLORIDE 101 mmol/L (98-107); CO2 22 mmol/L (21-32); CREATININE 1.6 mg/dL (0.6-1.0); GLUCOSE 199 mg/dL (74-106); POTASSIUM 3.9 mmol/L (3.5-5.1); SODIUM 140 mmol/L (136-145)
[2020-04-18 14:59] LABS: ALBUMIN 4.3 g/dL (3.4-5.0); DIRECT BILIRUBIN < 0.1 mg/dL (<0.1-0.2); LIPASE 31 U/L (73-393); SGOT 59 U/L (15-37); SGPT 69 U/L (30-65); TOTAL BILIRUBIN 0.3 mg/dL (0.2-1.0); TOTAL PROTEIN 7.8 g/dL (6.4-8.2)
[2020-04-18 16:52] LABS: CALCIUM 9.1 mg/dL (8.5-10.1); CREATININE 1.4 mg/dL (0.6-1.0); POTASSIUM 4.8 mmol/L (3.5-5.1)
[2020-04-18] MEDS ORDERED: MACROBID 100 M100 MG PO (17:10)
[2020-04-18 17:18] VITALS: BP 134/64
== END 2020-04-18 17:18 | disposition home or self-care (01) ==
LOC: ER 13:57
PROVIDERS: Emergency Medicine; Physician Assistant
DX: N39.0 Urinary tract infection, site not specified (principal); I12.9 Hypertensive chronic kidney disease with stage 1 through stage 4 chronic kidney disease, or unspecified chronic kidney disease; E11.22 Type 2 diabetes mellitus with diabetic chronic kidney disease; N18.9 Chronic kidney disease, unspecified; Z90.710 Acquired absence of both cervix and uterus; Z90.89 Acquired absence of other organs; Z90.49 Acquired absence of other specified parts of digestive tract; Z79.899 Other long term (current) drug therapy; Z88.1 Allergy status to other antibiotic agents; Z88.6 Allergy status to analgesic agent; Z88.5 Allergy status to narcotic agent; Z88.8 Allergy status to other drugs, medicaments and biological substances

== ENCOUNTER → 2020-04-23 | Outpatient (CLI) | payer OTHER ==
[~2020-04-23] VITALS: Ht 165.1 cm; Wt 77.0 kg
[~2020-04-23] MED LIST changes: +FAMOTIDINE10 MG PO; +MACROBID 100 M100 MG PO
[2020-04-23 12:30] VITALS: BP 144/70
--- NOTE | 2020-04-23 12:36 | NUR ---
Pain Clinic Assessment: 1. History of Osteoarthritis: HANDS BACK History of Rheumatoid Arthritis: YES 2. Height: 5 ft. 5 in. 165.1 cm. Weight: 169.8 lb. oz. 77.021 kg. Patient's BMI: 28.3 3. Vital Signs: BP: 144/70 Pulse: 97 Resp: 18 Temp: 02 Sat: 98 ECG Mon: 4. Pain Intensity: 4-WITH PAIN MEDS 5. Fall Risk: Dizziness: N Needs help standing or walking: N Fallen in the last 3 months: N Fall risk comments: 6. Patient on Blood Thinner: None 7. History of Hypertension: Y 8. Opioid Therapy greater than 6 weeks: Y Opiate Contract Signed: 01/17/20 9. Risk Assessment Tool Provided: LOW-0 10. Functional Assessment Tool: 11. Recreational Drug Use: Never Drug Type: Tobacco Use: Never Smoker Tobacco Type: Amount or Packs/day: How Many Years: Alcohol Use: Yes Frequency: Quant:
--- NOTE | 2020-04-24 08:06 | HPC ---
[facility] [place] [address] PAIN MANAGEMENT CONSULTATION Name: MARC PHELAN Room #: REG BABATUNDE Estevan#: [id number] Admission: 04/23/20 Attend Phys: Shama Vegas Discharge: Date of : 50 Report #: [id number] CC: Shama Brito DO Trang cOampo DNP DATE OF SERVICE: 04/23/2020 CHIEF COMPLAINT: Low back pain, right lower extremity pain and paresthesias. HISTORY OF PRESENT ILLNESS: As you know, this is a 70-year-old female who has been coming to the pain clinic for several years for her opioid medications. She has had previous back surgery that was unsuccessful and has continued to have low back pain that does radiate down her right leg, most prominently but occasionally on her left. She reports that she had been having increasing pain, so her primary provider, Trang Ocampo, decided to send her to an orthopedic surgeon for pain management. The patient has been seeing her pain management doctor, Dr. Raj Brito for several years who would been able to perform these injections on this patient. We did discuss epidural injection at her December visit. The patient was going to Dr. Crowley under referral from Trang Ocampo. The patient reports that she had two epidural steroid injections and physical therapy that were not successful. She has been continued to have increasing pain in her lower back and is now scheduled to see Dr. Roberto, a neurosurgeon later this week. The patient does report she has had an MRI since our last visit in December, but she does not have those reports with her currently. I reminded the patient that we had talked about epidural steroid injections as well as physical therapy at her December visit. She reports that she does remember that now, but she was following Dr. Ocampo's recommendations of going to a different pain clinic. The patient is reporting her pain at a 4/10 with her medications as a throbbing or weakness, constant pain that is worse with standing and walking. She believes that her medications as well as lying down are beneficial, but is ready to have some treatment to help her relieve her pain. Today, she is here for medication refills which she has been seeing us for about 2 years. ALLERGIES: CODEINE, ASPIRIN, AUGMENTIN AND LYRICA. MEDICATIONS: Macrobid, Pepcid, oxycodone 5/325, gabapentin 300 mg at bedtime, Plaquenil, NovoLog, nortriptyline, Singulair, metformin, melatonin, Tresiba, gemfibrozil, Cymbalta, and Zyrtec. PQRS: 1. She has osteoarthritic changes in her spine and hands and is also being treated for rheumatoid arthritis. 2. Height is 5 feet 5 inches, weight is 169, BMI is 28. 3. Vital signs 144/70, pulse is 97, respirations 18, oxygen sat is 98. 4. Pain score is 4/10. 5. Denies dizziness, does not need assistance walking, has not fallen in the last 3 months. 6. The patient is not on any blood thinners, but does take medicine for hypertension. Opioid therapy is greater than 6 weeks. Risk assessment is low. Functional assessment is 48/70. 7. Recreational drug use, she denies. She is not a smoker and occasionally drinks alcohol. According to the prescription monitoring system, the patient is filling her medicines appropriately, taking them in a timely fashion. Her morphine milliequivalent is 22 MME, well below the CDC guidelines. PHYSICAL EXAMINATION: GENERAL: This is alert and orientated 70-year-old well-developed, well-nourished female who appears her stated age, placing her current pain score 4/10. HEENT: Normocephalic, atraumatic. Pupils equal, round and reactive to light. She is wearing a mask. EXTREMITIES: No clubbing, no cyanosis, no edema. MUSCULOSKELETAL: She has pain and tenderness over the lower lumbar region that does radiate into her bilateral legs, greater on the right than the left with a positive straight leg raising on the right. Modified Gaenslen's is positive for axial low back pain with restrictions in her movement due to previous surgeries. Muscle strength is equal and symmetrical at 5/5. She does have a well-healed surgical scar in her lumbar spine. IMPRESSION: 1. Chronic lumbar radiculopathy. 2. Failed lumbar spine since surgery. 3. Chronic low back pain. 4. Myofascial symptoms. 5. Rheumatoid arthritis. 6. Opioid medications. We reviewed the fact that opiate medications are being used to provide analgesia adequate to support activities of daily living, not attempting to achieve a specific pain score on the 0-10 Visual Analog Scale. The current opiate medications are providing sufficient analgesia to allow the patient to participate in activities of daily living. The patient is not exhibiting any aberrant behavior suggestive of drug diversion. The patient is not having any adverse reactions to medications. The patient is not suffering from daytime somnolence or mental acuity changes. The patient is managing opiate-induced constipation with appropriate lumc-yrl-czftvjj agents and dietary considerations. The patient was counseled on concern for caution with operating a motor vehicle while using opiate medications. A physical exam was performed and the patient's functional status was evaluated. All patients with back pain were advised against the bed rest greater than 4 days and were advised to return to normal activities. Pain score assessment was noted and the treatment plan was reviewed with the patient. All current medications, both prescribed and OTC were reviewed and reconciled on the electronic medical record. Tobacco screening was accomplished and smoking cessation was advised when indicated. BMI was noted and diet/exercise modification was recommended for all patients following outside normal parameters. I reviewed with the patient today their responsibilities to safeguard prescription medications, reviewed their responsibility to utilize medications only as prescribed by the physician. They are to seek and receive pain medications only from 1 physician group ([facility]). They are to use 1 pharmacy and keep the clinic informed if they change pharmacies. Their responsibilities include making followup visits in a timely fashion and to avoid abrupt discontinuation of medication usage. Their responsibilities further include bringing their medications (bottles from the pharmacy with residual pills) to the visit for possible confirmation of pill counts and the patient understands it is their responsibility to submit to random drug screens to ensure both that the medications prescribed are present, and that no other controlled substances are present. All prescriptions provided today were generated electronically. PLAN: 1. We discussed treatment options with the patient today. She explains to us that Dr. Ocampo did send her to a different pain clinic for epidural steroid injections despite our history with the patient for several years in which the physicians preform epidural steroid injections, not just medication management. She states she was following Dr. Ocampo's recommendation. She states that the first epidural was beneficial, but the second was not; therefore, she is seeing a neurosurgeon, Dr. Roberto, later this week. 2. The patient is not wanting to have surgery at this time, but felt that that was her only other option. 3. I did discuss with the patient in depth about spinal cord stimulators as a possible option. Dr. Raj Brito does perform this if Dr. Roberto feels that may be something the patient may benefit from. 4. We will write for one month of medications to allow the patient time to see Dr. Ocampo where she can takeover writing her opioid medications for this patient. She is taking oxycodone 5/325, which is well below the CDC guidelines and believe that Dr. Ocampo could easily write this medication. If Dr Ocampo is not comfortable writing this medication then she can refer the back to Dr. Crowley who she has sent the patient to for further opioid management. The patient verbalizes understanding. Scripts sent for 1 month. 5. The patient is seen today in collaboration with Dr. Raj Brito, who is agreed upon the above of the patient returning to Dr. Ocampo for further medication continuation. <ELECTRONICALLY SIGNED> By: Shama Vegas 04/24/20 [id number] Shama Vegas /dylan
== END ==
LOC: PAIN 06:42
PROVIDERS: ATTEND Clinical Nurse Specialist Adult Health
DX: M54.16 Radiculopathy, lumbar region (principal); G89.29 Other chronic pain; M06.9 Rheumatoid arthritis, unspecified; Z79.891 Long term (current) use of opiate analgesic

== ENCOUNTER 2020-05-07 15:48 | Emergency (ER) | payer OTHER ==
[~2020-05-07] VITALS: Ht 165.1 cm; Wt 75.3 kg
[2020-05-07 16:11] LABS: URINE BILIRUBIN NEGATIVE (Negative); URINE BLOOD NEGATIVE (Negative); URINE CLARITY CLEAR; URINE COLOR YELLOW; URINE GLUCOSE-RANDOM* NEGATIVE (Negative); URINE KETONES NEGATIVE (Negative); URINE LEUKOCYTES-REFLEX NEGATIVE (Negative); URINE NITRITE-REFLEX NEGATIVE (Negative); URINE PROTEIN (DIPSTICK) NEGATIVE (Negative); URINE SPECIFIC GRAVITY >= 1.030 (1.005-1.035); URINE UROBILINOGEN 0.2 E.U./dl (0.2-1.0)
[2020-05-07 16:45] LABS: ABSOLUTE NEUTROPHILS 3.4 thou/uL (1.4-8.2); BASOPHILS 0.6 % (0.0-2.0); EOSINOPHILS 2.8 % (0.0-3.0); HEMOGLOBIN 12.9 gm/dL (12.0-15.0); LYMPHOCYTES 30.1 % (24.0-44.0); MCH 27.6 pg (26.0-34.0); MCHC 32.2 g/dL (28.0-37.0); MCV 85.7 fL (80.0-100.0); PLATELET COUNT 317 thou/uL (150-400); POLYS 58.5 % (36.0-66.0); RBC 4.67 mil/uL (4.20-5.00); RDW 15.2 % (10.5-14.5); WBC 5.9 thou/uL (4.0-11.0)
[2020-05-07 16:53] LABS: CALCIUM 9.8 mg/dL (8.5-10.1); CREATININE 1.4 mg/dL (0.6-1.0); POTASSIUM 4.3 mmol/L (3.5-5.1)
[2020-05-07 16:59] LABS: ALBUMIN 4.1 g/dL (3.4-5.0); TOTAL BILIRUBIN 0.2 mg/dL (0.2-1.0)
[2020-05-07] MEDS ORDERED: ZOFRAN ODT4 MG DISSOLVE (20:06)
[2020-05-07 20:19] VITALS: BP 149/80
== END 2020-05-07 20:19 | disposition home or self-care (01) ==
LOC: ER 15:48
PROVIDERS: Physician Assistant
DX: R10.32 Left lower quadrant pain (principal); Z90.49 Acquired absence of other specified parts of digestive tract; Z90.710 Acquired absence of both cervix and uterus; Z79.899 Other long term (current) drug therapy; Z88.1 Allergy status to other antibiotic agents; Z88.2 Allergy status to sulfonamides; Z88.6 Allergy status to analgesic agent; Z88.8 Allergy status to other drugs, medicaments and biological substances

== ENCOUNTER → 2021-07-01 | Outpatient (CLI) | payer OTHER ==
[~2021-07-01] MED LIST changes: +ZOFRAN ODT4 MG DISSOLVE
== END ==
LOC: RAD 11:28
PROVIDERS: ATTEND Nurse Practitioner
DX: R07.81 Pleurodynia (principal); Z87.01 Personal history of pneumonia (recurrent)

== ENCOUNTER 2021-07-28 11:56 | Emergency (ER) | payer OTHER ==
[~2021-07-28] VITALS: Ht 165.1 cm; Wt 74.8 kg
[2021-07-28 14:03] LABS: ABSOLUTE NEUTROPHILS 3.7 thou/uL (1.4-8.2); BASOPHILS 0.3 % (0.0-2.0); EOSINOPHILS 2.8 % (0.0-3.0); HEMATOCRIT 41.8 % (37.0-47.0); MCH 29.7 pg (26.0-34.0); MCHC 33.4 g/dL (28.0-37.0); MCV 89.1 fL (80.0-100.0); MONOCYTES 7.9 % (1.0-8.0); PLATELET COUNT 292 thou/uL (150-400); RDW 14.4 % (10.5-14.5); WBC 5.8 thou/uL (4.0-11.0)
[2021-07-28 14:11] LABS: URINE BILIRUBIN NEGATIVE (Negative); URINE BLOOD NEGATIVE (Negative); URINE CLARITY CLEAR; URINE COLOR YELLOW; URINE GLUCOSE-RANDOM* 3+ (Negative); URINE KETONES NEGATIVE (Negative); URINE LEUKOCYTES-REFLEX NEGATIVE (Negative); URINE PROTEIN (DIPSTICK) NEGATIVE (Negative); URINE UROBILINOGEN 0.2 E.U./dl (0.2-1.0)
[2021-07-28 14:12] LABS: URINE NITRITE-REFLEX POSITIVE (Negative)
[2021-07-28 14:14] LABS: CALCIUM 9.8 mg/dL (8.5-10.1); CREATININE 1.2 mg/dL (0.6-1.0); POTASSIUM 4.3 mmol/L (3.5-5.1)
[2021-07-28 14:20] LABS: ALBUMIN 4.4 g/dL (3.4-5.0); DIRECT BILIRUBIN 0.1 mg/dL (<0.1-0.2); TOTAL BILIRUBIN 0.3 mg/dL (0.2-1.0); TOTAL PROTEIN 7.8 g/dL (6.4-8.2)
[2021-07-28 14:49] LABS: BACTERIA-REFLEX >30 Many /HPF (None Seen); CASTS None Seen /LPF (None Seen); CRYSTALS None Seen /LPF (None Seen); SQUAMOUS 0-3 Few /LPF (0-3); URINE RBC None Seen /HPF (NONE SEEN); URINE WBC-REFLEX 6-15 Few /HPF (0-5)
[2021-07-28] MEDS ORDERED: ZOFRAN ODT4 MG PO (15:58)
[2021-07-28] MEDS ORDERED: LEVSIN0.125 MG PO (15:58)
[2021-07-28] MEDS ORDERED: MACROBID 100 M100 M1 PO (16:23)
[2021-07-28 17:18] VITALS: BP 138/82
== END 2021-07-28 17:19 | disposition home or self-care (01) ==
LOC: ER 11:56
PROVIDERS: Student in an Organized Health Care Education/Training Program
DX: A04.72 Enterocolitis due to Clostridium difficile, not specified as recurrent (principal); Z20.822 Contact with and (suspected) exposure to COVID-19; Z90.49 Acquired absence of other specified parts of digestive tract; Z90.89 Acquired absence of other organs; Z90.710 Acquired absence of both cervix and uterus; Z79.4 Long term (current) use of insulin; Z79.84 Long term (current) use of oral hypoglycemic drugs; Z79.899 Other long term (current) drug therapy; Z88.5 Allergy status to narcotic agent; Z88.6 Allergy status to analgesic agent; Z88.1 Allergy status to other antibiotic agents; Z88.8 Allergy status to other drugs, medicaments and biological substances